=== PATIENT | male | born 1965 | race Hispanic/Latino ===

== ENCOUNTER 2017-03-17 08:25 | Outpatient (CLI) | payer BC ==
[2017-03-17 09:01] LABS: Hematocrit 43.9 % (35.5-45.6); Hemoglobin 14.7 gm/dl (11.8-15.2); Mean Corpuscular HGB Conc 34 % (32-34); Mean Corpuscular Hemoglobin 28 pg (28-32); Mean Corpuscular Volume 84 fl (84-94); Platelet Count 315 K/mm3 (140-440); Red Blood Count 5.21 M/mm3 (3.65-5.03); Red Cell Distribution Width 13.8 % (13.2-15.2); White Blood Count 6.6 K/mm3 (4.5-11.0)
[2017-03-17 09:12] LABS: Alanine Aminotransferase 28 units/L (7-56); Albumin 4.1 g/dL (3.9-5); Albumin/Globulin Ratio 1.6 %; Alkaline Phosphatase 54 units/L (35-129); Anion Gap 16 mmol/L; BUN/Creatinine Ratio 16.66; Blood Urea Nitrogen 15 mg/dL (9-20); Carbon Dioxide 26 mmol/L (22-30); Chloride 102.8 mmol/L (98-107); Cholesterol 160 mg/dL (50-199); Glucose 143 mg/dL (75-100); HDL Cholesterol 34 mg/dL (40-59); LDL Cholesterol,Direct 112 mg/dL (50-130); Potassium 4.5 mmol/L (3.6-5.0); Sodium 140 mmol/L (137-145); Total Protein 6.7 g/dL (6.3-8.2); Triglycerides 71 mg/dL (2-149)
--- NOTE | 2017-03-18 04:43 | Treadmill Report ---
THALLIUM STRESS TEST LEFT VENTRICLE: Left ventricle is at the upper limits of normal in size. Perfusion studies demonstrates somewhat heterogeneous uptake of the tracer in all segments. There is normal apical thinning. No significant reversible defects identified. Gated analysis suggests left ventricular systolic function in the lower limits of normal, ejection fraction 54%. CONCLUSION: Suboptimal perfusion study, with no demonstrable ischemic coronary disease. Clinical correlation is recommended. JOB# [id number] CA/NTS
== END 2017-03-17 08:26 | disposition home or self-care (01) ==
LOC: CARD 08:25
PROVIDERS: ATTEND Internal Medicine
DX: R06.02 Shortness of breath (principal)
CPT/HCPCS: 36415; 78452; 80053; 80061; 83036; 84443; 85027; 93017; A9502

== ENCOUNTER 2017-03-24 07:40 | Outpatient (CLI) | payer BC | END 2017-03-24 07:41 | disposition home or self-care (01) | LOC: ECHO 07:40 | PROVIDERS: ATTEND Internal Medicine | DX: Z12.5 Encounter for screening for malignant neoplasm of prostate (principal); I34.0 Nonrheumatic mitral (valve) insufficiency; N52.9 Male erectile dysfunction, unspecified; R06.02 Shortness of breath; R97.20 Elevated prostate specific antigen [PSA] | CPT/HCPCS: 36415; 84153; 93306 ==